=== PATIENT | female | born 1990 | race African-American/Black ===

== ENCOUNTER 2017-01-07 08:08 | Emergency (ER) | payer SELFPAY ==
[~2017-01-07] VITALS: Ht 157.5 cm; Wt 65.0 kg
[~2017-01-07 08:08] MED LIST: BACT800T5 PO; CEPH500C3 PO
[2017-01-07 08:09] VITALS: BP 130/82; PULSE 87; RESP 18; TEMP 98.8; O2SAT 96
[2017-01-07] MEDS ORDERED: PENICILLIN V POTASSIUM 500 MG TAB PO ONE (08:45)
[2017-01-07] MEDS ORDERED: PENI500T PO (08:46)
--- NOTE | 2017-01-07 08:46 | PD ---
HPI Chief Complaint: Oral / Dental Pain or Problem Time Seen by Provider: 08:37 Travel History International Travel<30 days: No Contact w/Intl Traveler<30days: No Traveled to known affect area: No History of Present Illness HPI 26-year-old woman presents emergent Truman of dental pain. Symptoms been ongoing for the past 2-3 weeks, worse with past couple days. Mostly on the right side, upper and lower. History Past Medical History Medical History: Denies Significant Hx LMP: 3 : 2 Para: 1 Social History Alcohol Use: Yes (24 PACK DAILY) Tobacco Use: Yes (1PPD) Allergies-Medications (Allergen,Severity, Reaction): Coded Allergies: bee venom protein (honey bee) (Verified Allergy, Severe, Anaphylaxis, ) ibuprofen (Verified Allergy, Severe, Anaphylaxis, 01/07/17) naproxen (Unverified Allergy, Severe, 01/07/17) ALEVE Reported Meds & Prescriptions Reported Meds & Active Scripts Active No Active Prescriptions or Reported Medications Review of Systems Except as stated in HPI: all other systems reviewed are Neg Physical Exam Narrative GENERAL: Well-appearing 26-year-old, no acute distress. SKIN: Warm and dry. CARDIOVASCULAR: Warm and well perfused. RESPIRATORY: Normal rate and effort. HEENT: Multiple areas of dental decay. There is obvious fluctuance or abscess. There is dental tenderness to percussion on the left side upper and lower teeth. NEUROLOGICAL: Awake and alert. No gross deficits. Data Data Last Documented VS Vital Signs Date Time Temp Pulse Resp B/P (MAP) Pulse Ox O2 Delivery O2 Flow Rate FiO2 01/07/17 08:09 98.8 87 18 130/82 (98) 96 Room Air Orders Orders Penicillin V Potassium (Veetids) (01/07/17 08:45) MDM Medical Decision Making Medical Screen Exam Complete: Yes Emergency Medical Condition: Yes Differential Diagnosis Dental infection, inflammation, other Narrative Course Medical decision making 26-year-old with odontalgia, multiple areas, no abscess. Recommend follow-up with dentist. Diagnosis Primary Impression: Pain, dental Additional Instructions: Follow-up with dentist as discussed. Take antibiotics as prescribed. Continue [id number] medications as needed for pain. Med/Other Pt SpecificInfo: Prescription(s) given Scripts Penicillin V Potassium (Penicillin V Potassium) 500 Mg Tab 500 MG PO Q8H for Infection for 7 Days, #21 TAB 0 Refills Prov: Tru Wolff MD 01/07/17 Disposition: 01 DISCHARGE HOME Condition: Stable Tru Wolff MD Jan 07, 2017 08:46
== END 2017-01-07 09:13 | disposition home or self-care (01) ==
LOC: NEPC 08:08
DX: K08.89 Other specified disorders of teeth and supporting structures (principal); F17.200 Nicotine dependence, unspecified, uncomplicated
CPT/HCPCS: 99283

== ENCOUNTER 2017-03-16 18:19 | Emergency (ER) | payer SELFPAY ==
[~2017-03-16] VITALS: Ht 157.5 cm; Wt 63.5 kg
[~2017-03-16 18:19] MED LIST changes: -BACT800T5 PO; -CEPH500C3 PO; +PENI500T PO
[2017-03-16 18:20] VITALS: BP 113/57; PULSE 82; RESP 16; TEMP 98.7; O2SAT 98
[2017-03-16] MEDS ORDERED: TRAM50TA PO (18:35)
[2017-03-16] MEDS ORDERED: PENI500T PO (18:35)
--- NOTE | 2017-03-16 18:38 | PD ---
HPI Chief Complaint: Oral / Dental Pain or Problem Time Seen by Provider: 18:31 Travel History International Travel<30 days: No Contact w/Intl Traveler<30days: No Traveled to known affect area: No History of Present Illness HPI This patient complains of dental pain. The patient was seen and examined in the presence of the nurse. Denies fever or injury. She has several rotted out teeth. She has pain in her gums. PFSH Past Medical History Anxiety: Yes Depression: Yes Diminished Hearing: No Tetanus Vaccination: Unknown ?: Not : 2 Para: 1 Social History Alcohol Use: Yes (24 PACK DAILY) Tobacco Use: Yes (1PPD) Substance Use: No Allergies-Medications (Allergen,Severity, Reaction): Coded Allergies: bee venom protein (honey bee) (Verified Allergy, Severe, Anaphylaxis, ) ibuprofen (Verified Allergy, Severe, Anaphylaxis, 03/16/17) naproxen (Unverified Allergy, Severe, 03/16/17) ALEVE Reported Meds & Prescriptions Reported Meds & Active Scripts Active Tramadol (Tramadol HCl) 50 Mg Tab 50 Mg PO Q6H PRN Penicillin V Potassium 500 Mg Tab 500 Mg PO Q8H 7 Days Review of Systems Except as stated in HPI: all other systems reviewed are Neg General / Constitutional: No: Fever Eyes: No: Drainage HENT: No: Headaches Cardiovascular: No: Chest Pain or Discomfort Physical Exam Narrative NECK: Symmetrical appearance, midline trachea. No mass or crepitus. Thyroid without enlargement, tenderness, or mass. SKIN: Focused skin assessment reveals no rash or ulcers. Skin is warm and dry. Palpation shows no induration or nodules. Oral cavity: No gingival abscess noted. Several rotted out teeth are noted. Uvula midline without exudate on the tonsillar regions Data Data Last Documented VS Vital Signs Date Time Temp Pulse Resp B/P (MAP) Pulse Ox O2 Delivery O2 Flow Rate FiO2 03/16/17 18:20 98.7 82 16 113/57 (75) 98 MDM Medical Decision Making Medical Screen Exam Complete: Yes Emergency Medical Condition: Yes Medical Record Reviewed: Yes Differential Diagnosis Cavity, gingivitis, abscess Narrative Course I have reviewed the patient's electronic medical record. Patient will need dental follow-up. I did write some penicillin and tramadol for symptom relief Diagnosis Primary Impression: Pain, dental Additional Instructions: The patient was advised to follow up with their dentist and return if they worsen. The patient was warned about potential sedation for the medications they will receive on prescription. Med/Other Pt SpecificInfo: Prescription(s) given Scripts Tramadol (Tramadol) 50 Mg Tab 50 MG PO Q6H Y for PAIN, #15 TAB 0 Refills Prov: Renard Mir MD 03/16/17 Penicillin V Potassium (Penicillin V Potassium) 500 Mg Tab 500 MG PO Q8H for Infection for 7 Days, #21 TAB 0 Refills Prov: Renard Mir MD 03/16/17 Disposition: 01 DISCHARGE HOME Condition: Stable Renard Mir MD Mar 16, 2017 18:38
== END 2017-03-16 18:52 | disposition home or self-care (01) ==
LOC: NEPC 18:19
DX: K08.89 Other specified disorders of teeth and supporting structures (principal); F41.9 Anxiety disorder, unspecified; F32.9 Major depressive disorder, single episode, unspecified; F17.200 Nicotine dependence, unspecified, uncomplicated; Z88.6 Allergy status to analgesic agent
CPT/HCPCS: 99284

== ENCOUNTER 2017-04-12 08:55 | Emergency (ER) | payer SELFPAY ==
[~2017-04-12 08:55] MED LIST changes: +TRAM50TA PO
[2017-04-12 08:58] VITALS: BP 173/72; PULSE 69; RESP 12; TEMP 97.9; O2SAT 99
--- NOTE | 2017-04-12 09:14 | PD ---
HPI Chief Complaint: Pain: Acute or Chronic Time Seen by Provider: 09:10 Travel History International Travel<30 days: No Contact w/Intl Traveler<30days: No Traveled to known affect area: No History of Present Illness HPI 27-year-old female presents to emergency department for evaluation right hand pain. Patient does not recall an injury. States she woke up with her right hand painful and swollen mostly around the distal fourth and fifth MCP joints. She has had remote history of trauma to the right hand. Denies any alterations in sensation. Pain is exacerbated with movement of the hand. She has had no fever or chills. No other symptoms to report. PFSH Past Medical History Anxiety: Yes Depression: Yes Diminished Hearing: No Psychiatric: Yes Tetanus Vaccination: < 5 Years Influenza Vaccination: No ?: Not LMP: 04/12/17 : 2 Para: 1 Social History Alcohol Use: Yes (24 PACK DAILY) Tobacco Use: Yes (1PPD) Substance Use: No Allergies-Medications (Allergen,Severity, Reaction): Coded Allergies: bee venom protein (honey bee) (Verified Allergy, Severe, Anaphylaxis, ) naproxen (Unverified Allergy, Severe, 04/12/17) ALEVE Reported Meds & Prescriptions Reported Meds & Active Scripts Active Ibuprofen 600 Mg Tab 600 Mg PO Q8HR PRN Review of Systems Except as stated in HPI: all other systems reviewed are Neg Physical Exam Narrative GENERAL: Well-nourished, well-developed female patient in no acute distress. SKIN: Focused skin assessment warm/dry. HEAD: Normocephalic. EYES: No scleral icterus. No injection or drainage. NECK: Supple, trachea midline. No JVD or lymphadenopathy. CARDIOVASCULAR: Regular rate and rhythm without murmurs, gallops, or rubs. RESPIRATORY: Breath sounds equal bilaterally. No accessory muscle use. MUSCULOSKELETAL: No cyanosis, or edema. She has tenderness to palpation over the right fourth and fifth MCP joints. No obvious deformity. Patient can fully flex and extend all of the digits of the affected hand. Cap refill within normal limits. Sensation intact distal affected digits. BACK: Nontender without obvious deformity. No CVA tenderness. Data Data Last Documented VS Vital Signs Date Time Temp Pulse Resp B/P (MAP) Pulse Ox O2 Delivery O2 Flow Rate FiO2 04/12/17 10:04 04/12/17 08:58 97.9 69 12 99 Orders Orders Hand, Complete ([id number]) (04/12/17 ) Ketorolac Inj (Toradol Inj) (04/12/17 09:15) Ed Discharge Order (04/12/17 09:48) Nas Bandage (04/12/17 09:48) MDM Medical Decision Making Medical Screen Exam Complete: Yes Emergency Medical Condition: Yes Medical Record Reviewed: Yes Differential Diagnosis Osteoarthritic pain versus pseudogout versus gouty arthritis versus fracture versus sprain versus contusion Narrative Course 27-year-old female presents to emergency department for evaluation right hand pain. Patient has no preceding injury. She does have a remote history of trauma. There is no erythema or warmth. Does not appear infectious in nature. X-ray imaging confirms no acute bony normality. Patient is counseled on care. She'll be given anti-inflammatory medication and place an Nas wrap. She is advised to follow-up with hand specialist and return immediately with any acute worsening symptoms. Diagnosis Primary Impression: Right hand pain Referrals: Hand Surgeon Primary Care Physician Patient Instructions: General Instructions, Musculoskeletal Pain (ED) Additional Instructions: Nas wrap and compression for comfort Elevate to reduce pain and swelling Follow up with a hand specialist if symptoms persist Follow up with your primary care provider Return to ED with acute worsening of symptoms Med/Other Pt SpecificInfo: Prescription(s) given Scripts Ibuprofen (Ibuprofen) 600 Mg Tab 600 MG PO Q8HR Y for PAIN, #30 TAB 0 Refills Prov: Yana Wei 04/12/17 Disposition: 01 DISCHARGE HOME Condition: Stable Yana Wei Apr 12, 2017 09:13
[2017-04-12] MEDS ORDERED: KETOROLAC TROMETHAMINE 60 MG/2 ML (IM) VIAL IM ONE (09:15)
--- NOTE | 2017-04-12 09:33 | RADRPT ---
EXAM DATE/TIME: 04/12/2017 09:22 [facility] COMPARISON: No previous studies available for comparison. INDICATIONS : Patient complains of right hand pain in area of 4th and 5th metacarpal. No known injury. MEDICAL HISTORY : None. SURGICAL HISTORY : None. ENCOUNTER: Initial ACUITY: 3 days PAIN SCORE: 8/10 LOCATION: Right 4th/5th Metacarpal FINDINGS: Three view examination of the right hand demonstrates no soft tissue swelling, dislocation, or fractu re. The carpal bones appear intact. The interphalangeal and metacarpophalangeal joints are intact. Bony mineralization is normal. Small questionable foreign body in the soft tissues adjacent to the first metacarpophalangeal joint. CONCLUSION: Small questionable linear foreign body in the soft tissues adjacent to the first metacarpal phalangea l joint. No fracture. Behzad Padgett MD on April 12, 2017 at 9:28 Board Certified Radiologist. This report was verified electronically.
[2017-04-12] MEDS ORDERED: IBUP-232 PO (09:52)
== END 2017-04-12 10:07 | disposition home or self-care (01) ==
LOC: NEPD 08:55
DX: M79.641 Pain in right hand (principal); F41.9 Anxiety disorder, unspecified; F32.9 Major depressive disorder, single episode, unspecified; F17.200 Nicotine dependence, unspecified, uncomplicated
CPT/HCPCS: 73130; 96372; 99283; J1885